=== PATIENT | female | born 1955 | race Caucasian/White ===

== ENCOUNTER → 2017-03-16 | Outpatient (CLI) | payer MEDICAID | LOC: BRMIMAGING 13:42 | PROVIDERS: ATTEND Physician Assistant | DX: Z12.31 Encounter for screening mammogram for malignant neoplasm of breast (principal); M19.041 Primary osteoarthritis, right hand | CPT/HCPCS: 73130-PO; G0202 ==

== ENCOUNTER → 2017-03-19 | Outpatient (CLI) | payer MEDICAID | LOC: BRMIMAGING 09:00 | PROVIDERS: ATTEND Physician Assistant | DX: N95.0 Postmenopausal bleeding (principal); Z80.49 Family history of malignant neoplasm of other genital organs | CPT/HCPCS: 76856-PO ==